=== PATIENT | male | born 1955 | race Hispanic/Latino ===

== ENCOUNTER 2017-05-16 17:04 | Emergency (ER) | payer OTHER | END 2017-05-16 17:50 | disposition home or self-care (01) | LOC: SCSER 17:04 | DX: J32.0 Chronic maxillary sinusitis (principal); E11.9 Type 2 diabetes mellitus without complications; K21.9 Gastro-esophageal reflux disease without esophagitis; E78.5 Hyperlipidemia, unspecified; I10 Essential (primary) hypertension; F32.9 Major depressive disorder, single episode, unspecified | CPT/HCPCS: 99283 ==

== ENCOUNTER 2017-08-18 07:00 | Day surgery (SDC) | payer OTHER ==
[2017-08-15 17:20] VITALS: BMI 36.6
[2017-08-15 18:13] LABS: Hemoglobin 14.6 g/dL (14.0-18.0); Mean Corpuscular HGB CONC 34.4 g/dL (32.0-36.0); Mean Corpuscular Hemoglobin 30.4 pg (27.0-31.0); Mean Corpuscular Volume 88.4 fl (80.0-94.0); Mean Platelet Volume 6.5 fL (7.4-10.4); Platelet Count 311 thou/uL (130-400); RBC Distribution Width 13.6 % (11.5-14.5); White Blood Cell (WBC) Count 6.5 thou/uL (4.8-10.8)
[2017-08-15 18:23] LABS: PTT 27.1 SEC (22.9-36.1); Prothrombin Time 12.8 SEC (12.0-14.7)
[2017-08-15 18:40] LABS: ALT (SGPT) 35 U/L (8-55); AST (SGOT) 22 U/L (5-34); Albumin 4.2 g/dL (3.4-4.8); Alkaline Phosphatase 59 U/L (40-150); Anion Gap 12 mmol/L (10-20); BUN (Urea Nitrogen) 26 mg/dL (8.4-25.7); Bilirubin, Total 0.6 mg/dL (0.2-1.2); Calc. Creatinine Clearance 106 mL/min (70-130); Calcium 10.1 mg/dL (7.8-10.44); Carbon Dioxide 27 mmol/L (23-31); Chloride 94 mmol/L (98-107); Estimated GFR-MDRD 86; Globulin 3.1 g/dL (2.4-3.5); Glucose 148 mg/dL (80-115); Potassium 3.8 mmol/L (3.5-5.1); Protein, Total 7.3 g/dL (5.8-8.1); Sodium 129 mmol/L (136-145)
--- NOTE | 2017-08-16 18:52 | EKG ---
Test Reason : Blood Pressure : / mmHG Vent. Rate : 072 BPM Atrial Rate : 072 BPM P-R Int : 174 ms QRS Dur : 076 ms QT Int : 376 ms P-R-T Axes : 010 -17 163 degrees QTc Int : 411 ms Normal sinus rhythm Abnormal ECG When compared with ECG of 17-JAN-2015 08:08, (Unconfirmed) ST now depressed in Inferior leads Confirmed by DR. Jayy SOMERS ([id number]) on 08/16/2017 6:52:03 PM Referred By: LEENA Confirmed By:DR. Jayy SOMERS
[2017-08-18] MEDS ORDERED: Iopamidol 370 76% 100 ML VIAL ONE (07:01)
[2017-08-18 08:03] LABS: Cardiac Risk 5.6 (Less than 4.5)
[2017-08-18] MEDS ORDERED: Lidocaine 1% (PF) 30 ML VIAL ONE (09:39)
[2017-08-18] MEDS ORDERED: Midazolam HCl 2 mg/2 ml Vial ONE (10:21)
[2017-08-18] MEDS ORDERED: Fentanyl 100 MCG/2 ML VIAL ONE (10:21)
== END 2017-08-18 13:46 | disposition home or self-care (01) ==
LOC: CCL 07:00
PROVIDERS: ATTEND Internal Medicine Cardiovascular Disease
PROC: B2111ZZ Fluoroscopy of Multiple Coronary Arteries using Low Osmolar Contrast (ICD-10-PCS; principal; 2017-08-18)
PROC: B2151ZZ Fluoroscopy of Left Heart using Low Osmolar Contrast (ICD-10-PCS; principal; 2017-08-18)
DX: I25.10 Atherosclerotic heart disease of native coronary artery without angina pectoris (principal); I10 Essential (primary) hypertension; Z95.5 Presence of coronary angioplasty implant and graft
CPT/HCPCS: 36416; 80053; 80061; 85027; 85610; 85730; 93005; 93010; 93458; C1769; J1644; J2001; J2250; J3010